=== PATIENT | male | born 1985 | race Two or more races ===

== ENCOUNTER → 2024-08-10 | Outpatient (CLI) | payer OTHER, SELFPAY ==
[2024-08-10 12:53] LABS: Post Vasectomy Sperm Presence No Spermatozoa Seen (No Sperm)
== END | disposition home or self-care (01) ==
LOC: SLDO 12:24
PROVIDERS: Referring Provider Urology; Visit Provider Urology
DX: Z30.2 Encounter for sterilization (principal)
CPT/HCPCS: 89321